=== PATIENT | male | born 1995 | race Caucasian/White ===

== ENCOUNTER 2020-01-17 02:23 | Emergency (ER) | payer SELFPAY ==
[~2020-01-17] VITALS: Ht 162.6 cm; Wt 68.0 kg
[2020-01-17] MEDS ORDERED: KETOROLAC 30MG/ML VIAL IV ONE (02:45)
[2020-01-17] MEDS ORDERED: MORPHINE SULFATE 4 MG/ML CPJ (NOT FOR IM USE) IV ONE (02:45)
[2020-01-17] MEDS ORDERED: ONDANSETRON HCL 4MG/2ML INJ IV ONE (03:30)
[2020-01-17] MEDS ORDERED: ETOMIDATE 2MG/ML 10ML VIAL IV ONE (03:30)
[2020-01-17 04:00] VITALS: BP 117/66
== END 2020-01-17 04:38 | disposition home or self-care (01) ==
LOC: ER 02:23
DX: M24.412 Recurrent dislocation, left shoulder (principal); W18.39XA Other fall on same level, initial encounter; Y93.89 Activity, other specified; Y92.89 Other specified places as the place of occurrence of the external cause; Y99.8 Other external cause status
CPT/HCPCS: 23650; 73030; 96374; 96375; 99152; 99285; J1885; J2270; J2405; J3490